=== PATIENT | male | born 1955 | race Caucasian/White ===

== ENCOUNTER 2023-09-18 09:31 | Emergency (ER) | payer MEDICARE, OTHER, SELFPAY ==
[2023-09-18] VITALS (8 sets, daily range): BP systolic 110–136; BP diastolic 72–86; BMI 33.8
[2023-09-18 10:23] LABS: % Basophils 0.7 % (0-2); % Immature Granulocytes 0.7 % (0-0.5); % Lymphocytes 20.3 % (20.5-51.1); % Monocytes 8.2 % (1.7-9.3); % Neutrophils 69.1 % (42.2-75.2); Absolute Eosinophils 0.1 10^3/uL (0-0.7); Absolute Lymphocytes 1.2 10^3/uL (1.2-3.4); Absolute Monocytes 0.5 10^3/uL (0.1-0.6); Absolute Neutrophils 4.2 10^3/uL (1.4-6.5); Hematocrit 41.4 % (39.0-52.0); Hemoglobin 14.7 g/dL (13.0-18.0); Mean Corp Hgb Conc. 35.5 g/dL (33.0-37.0); Mean Corpuscular Volume 87.3 fL (80.0-94.0); Mean Platelet Volume 8.9 fL (7.4-10.4); Nucleated Red Blood Cells % 0 % (-); Platelet Count 243 10^3/uL (130-400); Red Blood Cell Count 4.74 10^6/uL (4.70-6.10); White Blood Cell Count 6.1 10^3/uL (4.8-10.8)
[2023-09-18 10:29] LABS: D-Dimer 0.29 ug/mlFEU (0.00-0.50)
[2023-09-18 10:58] LABS: ALT (SGPT) 30 U/L (0-50); AST (SGOT) 29 U/L (17-59); Albumin 4.3 g/dl (3.5-5.0); Alkaline Phosphatase 118 U/L (38-126); Blood Urea Nitrogen 15 mg/dl (9-20); Calcium 9.5 mg/dl (8.4-10.2); Carbon Dioxide 27 mmol/L (22-30); Chloride 105 mmol/L (98-107); Estimated Creatinine Clearance 115 ml/min; Glucose 116 mg/dl (70-99); Potassium 3.8 mmol/L (3.5-5.1); Sodium 138 mmol/L (135-145); Total Bilirubin 1.3 mg/dl (0.2-1.3); Total Protein 6.9 g/dl (6.3-8.2); Troponin I < 0.012 ng/ml; eGFR > 60.00
--- NOTE | 2023-09-18 10:58 | ED.GENMED ---
History of Present Illness
<Isabel Rodriguez CANDY DECORATOR - Last Filed: 09/18/23 15:31>
General
Chief Complaint: Chest Pain
Source: patient
Exam Limitations: none
Time Seen by Provider: 09/18/23 10:14
Nursing documentation reviewed up to this point in time: agreed with
History of Present Illness
History of Present Illness:
68-year-old male with history of sleep apnea using BiPAP, A-fib with ablation, HTN presents stating for the past 3 days he has had off and on midsternal chest pain/tightness with nausea no vomiting symptoms last 'minutes.'. Also intermittent lower
lip numbness past 3 days. Moist cough with phlegm. No aggravating or relieving factors for CP, can occur at rest or with activity. No sweating, lightheadedness with it. Denies CP now.
Has had 6 months of left arm tingling and states recently he has noticed some numbness and tingling down his right arm past 2 weeks. He is followed by neurologist for stenosis in his neck, he had an MRI of his spine. His last visit to the
neurologist was 1 month ago and he had the similar arm symptoms then and was placed on gabapentin and ordered physical therapy which she has not done yet.
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
Pt has f/u w Blueprint Developer Dr. Del Rosario [facility] on 10/08
Had cardiac cath at [place] 4 years ago he was told showed nothing worrisome.
Past History
<Isabel Rodriguez CANDY DECORATOR - Last Filed: 09/18/23 15:31>
Past History
ED Past Medical History: Arrthythmia (A-fib on Xarelto), CAD, HTN, Hypercholesterolemia, Other (Sleep apnea uses BiPAP) and Other (Chronic neck pain on gabapentin)
ED Past Surgical History: Cardiac (Cardiac cath 2020 at [facility])
Social History
Tobacco: Former smoker
Alcohol: None
Personal: Single
Living: alone
Employment: Retired
Review of Systems
<Isabel Rodriguez CANDY DECORATOR - Last Filed: 09/18/23 15:31>
Review of Systems
Allergies reviewed?: Yes
All Other Systems: ROS reviewed and negative except as documented in HPI and ROS
Constitutional: Denies fever
Respiratory: Reports cough; Denies trouble breathing
Cardiac: Reports chest pain; Denies diaphoresis, palpitations or syncope
ABD/GI: Denies abdominal pain, nausea, vomiting, diarrhea or anorexia
: Denies dysuria or difficulty voiding
Musculoskeletal: Reports neck pain (Chronic nothing new); Denies edema
Skin: Reports no symptoms
Neurological: Reports other (Cervical radicular pain down both arms, left greater than right, has cervical stenosis, neurologist is aware of symptoms); Denies dizzy, headache, weakness or numbness
Psychiatric: Reports anxiety (Patient admits to feeling anxious, he stopped his buspirone 'I do not take it, I do not know why.')
Phy Exam
<Isabel Rodriguez CANDY DECORATOR - Last Filed: 09/18/23 15:31>
Physical Exam
Physical Exam:
GENERAL: No acute distress. A&Ox3.
CONSTITUTIONAL: Afebrile.
EYES: clear, conjunctivae normal
Neck: Supple
ENMT: moist mucus membranes, Pharynx nl
RESPIRATORY: Regular respirations, nonlabored, lungs clear.
CARDIOVASCULAR: Regular rate and rhythm, no murmurs, no rubs.
GI: Soft, obese, nontender, normal BS
MUSCULOSKELETAL: Moves with ease. Well perfused. No edema.
SKIN: Warm, dry, pink
PSYCH: Mildly anxious mood and affect. Well kept, interactive and appropriate
NEUROLOGIC: Awake, alert and oriented. No focal neurological deficits
Scores
<Isabel Rodriguez, CANDY DECORATOR - Last Filed: 09/18/23 15:31>
Heart Score for Chest Pain Patients
STEMI patient?: No
History: Moderately Suspicious
ECG: Normal
Age: >/= 65 years
Risk Factors: 1 or 2 Risk Factors
Troponin: </= Normal Limit
Heart Score for Chest Pain Patients: 4
Heart Score Risk: 20.3% MACE over next 6 weeks
<Claudio Ponce MD - Last Filed: 09/18/23 18:35>
Heart Score for Chest Pain Patients
Heart Score for Chest Pain Patients: 4
Heart Score Risk: 20.3% MACE over next 6 weeks
Course
<Isabel Rodriguez NP - Last Filed: 09/18/23 15:31>
Orders/Labs/Results
Orders:
Orders
09/18/23 09:33
Electrocardiogram (*1) Urgent
Reason for Study: Chest Pain
EKG- Treatment ONCE
09/18/23 10:09
Complete Blood Count/With Diff Urgent
Comprehensive Metabolic Panel Urgent
D-Dimer Urgent
Troponin I Urgent
09/18/23 12:07
CR Chest - 2 Views Urgent
Comment:
Reason For Exam: chest pain, cough
09/18/23 13:09
Electrocardiogram (*1) Urgent
Reason for Study: Other
Other Reason for Exam: 2nd trop
09/18/23 13:10
EKG- Treatment ONCE
09/18/23 13:11
Troponin I Urgent
Abnormal Lab Results
09/18/23
10:09
Immature Gran % 0.7 H %
(0-0.5)
Lymphocytes % 20.3 L %
(20.5-51.1)
Glucose 116 H mg/dl
(70-99)
09/18/23 10:09
09/18/23 10:09
Vital Signs
Initial and Last Documented VS:
Initial Vital Signs
Temp Pulse Resp BP Pulse Ox
36.6 C 65 16 136/79 98
09/18/23 09:44 09/18/23 09:44 09/18/23 09:44 09/18/23 09:44 09/18/23 09:44
Last Documented Vital Signs
Temp Pulse Resp BP Pulse Ox
36.6 C 63 21 134/84 93
09/18/23 09:44 09/18/23 15:15 09/18/23 15:15 09/18/23 15:00 09/18/23 15:15
<Claudio Ponce MD - Last Filed: 09/18/23 18:35>
Orders/Labs/Results
Orders:
Orders
09/18/23 09:33
Electrocardiogram (*1) Urgent
Reason for Study: Chest Pain
EKG- Treatment ONCE
09/18/23 10:09
Complete Blood Count/With Diff Urgent
Comprehensive Metabolic Panel Urgent
D-Dimer Urgent
Troponin I Urgent
09/18/23 12:07
CR Chest - 2 Views Urgent
Comment:
Reason For Exam: chest pain, cough
09/18/23 13:09
Electrocardiogram (*1) Urgent
Reason for Study: Other
Other Reason for Exam: 2nd trop
09/18/23 13:10
EKG- Treatment ONCE
09/18/23 13:11
Troponin I Urgent
Abnormal Lab Results
09/18/23
10:09
Immature Gran % 0.7 H %
(0-0.5)
Lymphocytes % 20.3 L %
(20.5-51.1)
Glucose 116 H mg/dl
(70-99)
09/18/23 10:09
09/18/23 10:09
Vital Signs
Initial and Last Documented VS:
Initial Vital Signs
Temp Pulse Resp BP Pulse Ox
36.6 C 65 16 136/79 98
09/18/23 09:44 09/18/23 09:44 09/18/23 09:44 09/18/23 09:44 09/18/23 09:44
Last Documented Vital Signs
Temp Pulse Resp BP Pulse Ox
36.6 C 63 21 134/84 93
09/18/23 09:44 09/18/23 15:15 09/18/23 15:15 09/18/23 15:00 09/18/23 15:15
<Isabel Rodriguez CANDY DECORATOR - Last Filed: 09/18/23 15:31>
MDM/Problems Addressed
Differential Diagnosis Includes:
MA, angina, unstable angina
MDM/Problems Addressed:
68-year-old male with history of sleep apnea using BiPAP, A-fib with ablation, HTN presents stating for the past 3 days he has had off and on midsternal chest pain/tightness with nausea no vomiting symptoms last 'minutes.'. Also intermittent lower
lip numbness past 3 days. Moist cough with phlegm. No aggravating or relieving factors for CP, can occur at rest or with activity. No sweating, lightheadedness with it. Denies CP now
Afebrile, NAD,
EKG: NSR
10:30 a.m.
CBC, CMP unremarkable
Troponin WNL
12:45 p.m.
Pt has had no chest pain since arrival.
Troponin #2 pending
CXR pending
1:25 p.m.
CXR NAD.
Troponin #[address] Ponce in to examine pt. Agrees pt is stable for discharge,
Pt requesting a district scout executive here
Referred to [facility] Cardiology hotline.
<Isabel Rodriguez, CANDY DECORATOR - Last Filed: 09/18/23 15:31>
*Critical Care Note
Total Time (30-74mins, 75-104mins- exclusive of procedures): Not Applicable
ED Attending Note
<Isabel Rodriguez NP - Last Filed: 09/18/23 15:31>
-
Portions of this chart may have been created with voice recognition software.� Occasional wrong word or��sound alike� substitutions may have occurred due to the inherent limitations of voice recognition software.
<Claudio Ponce MD - Last Filed: 09/18/23 18:35>
ED Attending Note
Patient seen and examined by attending physician: Yes
ED Attending Note:
I have seen and evaluated the patient with a [id number] encounter. I have spoken to the advance practicer provider and involved in the medical history, the physical exam, medical decision making.
Evaluation and management service: agree unless noted differently below.
Results interpretation: agree unless noted differently below.
Focused HPI: 68-year-old male with a history of hypertension, atrial fibrillation, SILVIA who presents to the emergency room for chest pain. Patient reports intermittent symptoms for the past 3 days�describes pain across the chest as well as some
substernal tightness. There is no exertional component. In fact he says that he lives on the second floor and walks up the stairs without any difficulty. Has associated tingling in the arms particularly left arm. Also reports some mild shortness
of breath. Denies any nausea or vomiting. No abdominal pain. He denies any edema in the legs. He has not had any palpitations. He follows with Dr. Del Rosario for cardiology through [facility].
Physical exam: Awake alert not in distress. Vital signs all within normal limits. No cardiac rubs gallops or murmurs and regular rhythm. Lungs clear to auscultation. Good pulses all extremities. No edema in the extremities.
Medical Decision Makin-year-old male presents with atypical nonexertional chest pain intermittent for the past few days. Vitals normal. EKG no STEMI. Will check labs, serial troponins, D-dimer, chest x-ray. Reassess after the above.
Labs reviewed: CBC and CMP unremarkable, troponin serially undetectable. D-dimer negative. Chest x-ray no acute disease. Vital stable throughout ER stay. Stable for discharge advised to follow-up with cardiology as an outpatient. All questions
answered.
Discharge Plan
Departure
Patient Disposition: Home (Routine Discharge)
Date of Disposition: 09/18/23
Time of Disposition: 15:05
Patient with high blood pressure during this ER visit?: No
Condition: Good
Discharge Problem:
Atypical chest pain
Instructions: Chest Pain DCA Follow Up
Prescriptions:
No Action
atorvastatin 40 mg tablet
40 mg PO QPM
atenolol 25 mg tablet
25 mg PO DAILY
amlodipine 2.5 mg tablet
2.5 mg PO BID
tamsulosin 0.4 mg capsule
0.8 mg PO QPM
valsartan 320 mg tablet
160 mg PO DAILYPRN PRN (Reason: if BP exceeds 140)
flecainide 50 mg tablet
50 mg PO BID
gabapentin 300 mg capsule
300 mg PO TID
hydrochlorothiazide 25 mg tablet
25 mg PO DAILY
Xarelto 20 mg tablet
20 mg PO DAILY
Referrals:
Joey Vail MD [Active] - Next open appointment
Mike Rizo MD [Family Provider] -
Activity Restrictions/Additional Instructions:
As we discussed and you discussed with Dr. Ponce, someone from the [facility] cardiology group will contact you within the next 48 hours to set up an appointment for a more thorough cardiac evaluation.
Dr. Vail in that group does electrophysiology so you may want to make an appointment with him if possible
Return here immediately for worse chest pain, trouble breathing, vomiting, weakness or feeling sicker in any way.
Interventions
Interventions:
*Risk Screen - Suicide Last Done: 09/18/23 10:13
*General Assessment Last Done: 09/18/23 10:12
*Neglect/Abuse Screening Last Done: 09/18/23 10:13
ED- Fall Risk Assessment Last Done: 09/18/23 15:20
*ED COVID-19 Vaccine History Last Done: 09/18/23 10:12
*Nursing Disposition Last Done: 09/18/23 15:20
ED- Cardiac Assessment Last Done: 09/18/23 10:13
Discharge Date and Time
Discharge Date/Time: 09/18/23 15:25
Print Language: PORTUGUESE
[2023-09-18 14:20] LABS: Troponin I < 0.012 ng/ml
== END 2023-09-18 15:25 | disposition home or self-care (01) ==
LOC: EMR 09:31
PROVIDERS: Registered Nurse; EMERGENCY PHYSICIAN Emergency Medicine; FAMILY PHYSICIAN Internal Medicine
DX: R07.89 Other chest pain (principal); G47.33 Obstructive sleep apnea (adult) (pediatric); I10 Essential (primary) hypertension; E78.00 Pure hypercholesterolemia, unspecified; I25.10 Atherosclerotic heart disease of native coronary artery without angina pectoris; I48.91 Unspecified atrial fibrillation; Z79.01 Long term (current) use of anticoagulants; Z87.891 Personal history of nicotine dependence
CPT/HCPCS: 99283; 71046; 80053; 84484; 85025; 85379; 93005

== ENCOUNTER 2024-04-26 11:37 | Emergency (ER) | payer MEDICARE, OTHER, SELFPAY ==
[2024-04-26 11:39] VITALS: BP 154/91
--- NOTE | 2024-04-26 13:34 | ED.GENMED ---
History of Present Illness
General
Chief Complaint: Chest Pain
Time Seen by Provider: 04/26/24 12:54
History of Present Illness
History of Present Illness:
69-year-old male with history of PE on Eliquis, hypertension, A-fib presenting to the emergency department for chest discomfort. Patient reports symptoms have been on and off for the past 6 months. Denies exertional component. However also notes
that he gets a tingling sensation to bilateral upper extremities. Denies neck pain. Denies fever, however is also had a nonproductive cough for 6 weeks. Denies abdominal pain or GI symptoms. Denies any known history of coronary artery disease.
Does report that he had a stress test in February 2024, noted to be normal. Denies any difficulty breathing. Denies additional acute medical complaints
Past History
Past History
ED Past Medical History: Arrthythmia (A-fib on Xarelto), CAD, HTN, Hypercholesterolemia, Other (Sleep apnea uses BiPAP) and Other (Chronic neck pain on gabapentin)
ED Past Surgical History: Cardiac (Cardiac cath 2020 at [facility])
Social History
Tobacco: Former smoker
Alcohol: None
Personal: Single
Living: alone
Employment: Retired
Phy Exam
Physical Exam
Physical Exam:
General: Well-appearing, no clinical signs of dehydration, nontoxic and in no acute distress
HEENT: protecting airway
Neck: appears supple
CV: Normal heart rate, regular rhythm
Resp: No accessory muscle use, no increased work of breathing, lungs clear to auscultation bilaterally
Abd: Soft and non-distended, no tenderness to palpation
Extremities: No deformities, no swelling
Neuro: alert, no focal neurologic deficit
: deferred
Rectal: deferred
Psych: Normal affect
Skin: Intact
Scores
Heart Score for Chest Pain Patients
STEMI patient?: No
History: Slightly or Non-Suspicious
ECG: Normal
Age: >/= 65 years
Risk Factors: 1 or 2 Risk Factors
Troponin: </= Normal Limit
Heart Score for Chest Pain Patients: 3
Heart Score Risk: 2.5% MACE over next 6 weeks
Course
Orders/Labs/Results
Orders:
Orders
04/26/24 11:38
Electrocardiogram (*1) Urgent
Reason for Study: Chest Pain
EKG- Treatment ONCE
04/26/24 13:25
CT Chest Angio W/wo Iv Contras Urgent
Comment:
Reason For Exam: chest pain with HTN, numbness to upper extremities
04/26/24 13:37
Complete Blood Count/With Diff Urgent
Comprehensive Metabolic Panel Urgent
PTT Urgent
Prothrombin Time Urgent
Troponin I Urgent
Abnormal Lab Results
04/26/24
13:37
Monocytes % 10.9 H %
(1.7-9.3)
PT 23.7 H Sec
(11.4-14.6)
APTT 37.4 H Sec
(23.4-35.0)
04/26/24 13:37
04/26/24 13:37
Vital Signs
Initial and Last Documented VS:
Initial Vital Signs
Temp Pulse Resp BP Pulse Ox
98 F 98 18 154/91 97
04/26/24 11:39 04/26/24 11:39 04/26/24 11:39 04/26/24 11:39 04/26/24 11:39
Last Documented Vital Signs
Temp Pulse Resp BP Pulse Ox
98 F 80 20 129/85 98
04/26/24 11:39 04/26/24 16:00 04/26/24 16:00 04/26/24 16:00 04/26/24 16:00
MDM/Problems Addressed
MDM/Problems Addressed:
69-year-old male with history of A-fib and PE on Xarelto and hypertension presenting for 6 weeks of chest pressure, cough, tingling to upper extremities, intermittent. Vital signs on arrival significant for high blood pressure.
On exam patient is resting comfortably, no acute distress or discomfort. Overall benign examination. Unremarkable cardiac and pulmonary exam. No focal neurologic deficits with intact strength and sensation to upper extremities. EKG obtained,
nonischemic without significant change from prior. Patient arrives with report from recent stress testing, March 07, 2024, without concern for acute ischemia. Symptoms do not appear consistent with ACS. However, in the setting of hypertension,
intermittent symptoms, and tingling to upper extremities, will plan for advanced imaging of the chest to rule out aortic pathology. Plan for laboratory analysis as well
16:20 -patient's labs are unremarkable. CT does show severe coronary artery calcifications. However no signs of aneurysm or dissection. Given duration of symptoms, recent normal stress test, hemodynamic stability, feel stable for discharge with
outpatient follow-up. Results were communicated to patient. Return precautions discussed and patient verbalized understanding.
*EKG
Interpreted by ED Provider?: Yes
EKG Intrepretation Date: 04/26/24
EKG Intrepretation Time: 13:39
Interpretation: normal
Comparison EKG: no changes (09/18/23)
Heart Rate: 88
Rate: normal
Rhythm: sinus
[place]: normal axis
Interval: other (left anterior fascicular block)
QRS Pattern: normal QRS
Ischemia: no ischemia
*Critical Care Note
Total Time (30-74mins, 75-104mins- exclusive of procedures): Not Applicable
ED Attending Note
-
Portions of this chart may have been created with voice recognition software.� Occasional wrong word or��sound alike� substitutions may have occurred due to the inherent limitations of voice recognition software.
Discharge Plan
Departure
Patient Disposition: Home (Routine Discharge)
Date of Disposition: 04/26/24
Time of Disposition: 16:38
Patient with high blood pressure during this ER visit?: Yes
Condition: Good
Discharge Problem:
Chest pain
Instructions: Chest pain - Discharge instructions, BLOOD PRESSURE
Prescriptions:
No Action
atorvastatin 40 mg tablet
40 mg PO QPM
atenolol 25 mg tablet
25 mg PO DAILY
amlodipine 2.5 mg tablet
2.5 mg PO BID
tamsulosin 0.4 mg capsule
0.8 mg PO QPM
valsartan 320 mg tablet
160 mg PO DAILYPRN PRN (Reason: if BP exceeds 140)
flecainide 50 mg tablet
50 mg PO BID
gabapentin 300 mg capsule
300 mg PO TID
hydrochlorothiazide 25 mg tablet
25 mg PO DAILY
Xarelto 20 mg tablet
20 mg PO DAILY
Referrals:
UNKNOWN - PT DOES,NOT KNOW [Family Provider] -
Activity Restrictions/Additional Instructions:
You were seen in the emergency department for chest pain
You were found to have normal blood work. The CT of your chest showed calcifications in your coronary arteries. For this reason you should follow-up with her clinical quality rn.
Please follow-up closely with your primary care physician.
Return to the emergency department for any worsening of your symptoms, or any development of chest pain, difficulty breathing, abdominal pain with persistent vomiting and inability to tolerate food or liquid by mouth (concern for dehydration),
weakness, headache or confusion, fever greater than 100.4, or any additional symptoms that are concerning to you.
Thank you for choosing [facility].
Interventions
Interventions:
*Risk Screen - Suicide Last Done: 04/26/24 11:39
*General Assessment Last Done: 04/26/24 11:39
*Neglect/Abuse Screening Last Done: 04/26/24 11:39
*ED COVID-19 Vaccine History Last Done: 04/26/24 11:39
*Nursing Disposition Last Done: 04/26/24 17:13
ED- Cardiac Assessment Last Done: 04/26/24 16:00
Discharge Date and Time
Discharge Date/Time: 04/26/24 17:14
Print Language: GUINEAN
[2024-04-26 13:38] VITALS: BP 136/90
[2024-04-26 13:59] LABS: % Basophils 0.5 % (0-2); % Eosinophils 1.2 % (0-6); % Immature Granulocytes 0.2 % (0-0.5); % Lymphocytes 28.2 % (20.5-51.1); % Monocytes 10.9 % (1.7-9.3); Absolute Eosinophils 0.1 10^3/uL (0-0.7); Absolute Lymphocytes 1.7 10^3/uL (1.2-3.4); Absolute Monocytes 0.6 10^3/uL (0.1-0.6); Absolute Neutrophils 3.5 10^3/uL (1.4-6.5); Hematocrit 42.4 % (39.0-52.0); Hemoglobin 14.8 g/dL (13.0-18.0); Mean Corp Hgb Conc. 34.9 g/dL (33.0-37.0); Mean Corpuscular Hgb 30.8 pg (27.0-31.0); Mean Corpuscular Volume 88.3 fL (80.0-94.0); Mean Platelet Volume 8.9 fL (7.4-10.4); Nucleated Red Blood Cells % 0 % (-); Platelet Count 217 10^3/uL (130-400); Red Cell Dist. Width 12.3 % (11.5-14.5); White Blood Cell Count 5.9 10^3/uL (4.8-10.8)
[2024-04-26 14:00] VITALS: BP 119/74
[2024-04-26 14:07] LABS: INR 2.06; PT 23.7 Sec (11.4-14.6)
[2024-04-26 14:08] LABS: APTT 37.4 Sec (23.4-35.0)
[2024-04-26 14:09] LABS: ALT (SGPT) 27 U/L (0-50); AST (SGOT) 24 U/L (17-59); Albumin 3.9 g/dl (3.5-5.0); Alkaline Phosphatase 95 U/L (38-126); Blood Urea Nitrogen 17 mg/dl (9-20); Calcium 9.4 mg/dl (8.4-10.2); Carbon Dioxide 30 mmol/L (22-30); Chloride 104 mmol/L (98-107); Glucose 99 mg/dl (70-99); Potassium 3.5 mmol/L (3.5-5.1); Sodium 138 mmol/L (135-145); Total Bilirubin 1.1 mg/dl (0.2-1.3); Total Protein 6.6 g/dl (6.3-8.2); eGFR > 60.00
[2024-04-26 14:20] LABS: Troponin I < 0.012 ng/ml
[2024-04-26 15:00] VITALS: BP 125/77
[2024-04-26 16:00] VITALS: BP 129/85
== END 2024-04-26 17:14 | disposition home or self-care (01) ==
LOC: EMR 11:37
PROVIDERS: EMERGENCY PHYSICIAN Student in an Organized Health Care Education/Training Program
DX: R07.89 Other chest pain (principal); I48.91 Unspecified atrial fibrillation; I25.10 Atherosclerotic heart disease of native coronary artery without angina pectoris; I10 Essential (primary) hypertension; E78.00 Pure hypercholesterolemia, unspecified; G47.30 Sleep apnea, unspecified; Z86.711 Personal history of pulmonary embolism; Z79.01 Long term (current) use of anticoagulants; Z87.891 Personal history of nicotine dependence
CPT/HCPCS: 99284; 71275; 80053; 84484; 85025; 85610; 85730; 93005; Q9967